=== PATIENT | male | born 1945 | race Caucasian/White ===

== ENCOUNTER 2017-10-14 10:31 | Day surgery (SDC) | payer MEDICARE, BC ==
--- NOTE | 2017-10-13 21:41 | Pre-Procedure Note/Attestation ---
Pre-Procedure Note/Attestation Complete Prior to Procedure Planned Procedure: right - removal of cataract and placement of intraocular lens, right eye Procedure Narrative: Removal of cataract and placement of intraocular lens, right eye Indications for Procedure Pre-Operative Diagnosis: Cataract, right eye Attestation I attest that I discussed the nature of the procedure; its benefits; risks and complications; and alternatives (and the risks and benefits of such alternatives ), prior to the procedure, with the patient (or the patient's legal novelties sales representative). I attest that, if there was a reasonable possibility of needing a blood transfusion, the patient (or the patient's legal novelties sales representative) was given the [place] Department of Health Services standardized written summary, pursuant to the [place] Blood Safety Act ([place] Health and Safety Code # 1645, as amended). I attest that I re-evaluated the patient just prior to the surgery and that there has been no change in the patient's H&P, except as documented below: Ramiro Oliva MD Oct 13, 2017 21:41
[~2017-10-14] VITALS: Ht 167.6 cm; Wt 90.7 kg
[2017-10-14] VITALS (9 sets, daily range): BP systolic 146–169; BP diastolic 78–99
[~2017-10-14 10:31] MED LIST: ASPIR 8181 MG ORAL; Acetylcholine Injection (OR) ONE; Akten 3.5% 1ml Btl ONE; BSS 15ml BTL ONE; BSS 500ml btl ONE; Carbachol 0.01% Op Soln 1.5ml vial ONE; Cyclopentolate 1% Opth Sol 2ml ONE; Dexamethasone 4mg/ml vial ONE; EPINEPHrine 1mg/1ml Amp ONE; Fluorescein Strips ONE; Lidocaine 1% MPF 10mg/ml 5ml ONE; Maxitrol Opth Oint 3.5gm ONE; Phenylephrine 10% Opth Soln 5ml ONE; Povidone-Iodine 5% opth solution ONE; Pred Forte 1% Opth Susp 1ml ONE; Pred Forte 1% Opth Susp 1ml RIGHT EYE ONE; Pred Forte 1% Opth Susp 1ml RIGHT EYE SCH; SIMVASTATIN40 MG ORAL; Sodium Hyaluronate 10 mg/ml 0.85ml ONE; Tetracaine 0.5% Opth 4ml Soln ONE; Timolol 0.5% Op Soln 2.5ml ONE; Tropicamide 1% Opth 15ml Soln ONE; Vigamox Opth Soln 3ml ONE
[2017-10-14] MEDS ORDERED: Midazolam 2mg/2ml Inj ONE (10:53)
[2017-10-14] MEDS: Akten 3.5% 1ml Btl RIGHT EYE SCH ×3 (11:04→11:20)
[2017-10-14] MEDS: Vigamox Opth Soln 3ml RIGHT EYE SCH ×3 (11:05→11:21)
[2017-10-14] MEDS: Cyclopentolate 1% Opth Sol 2ml RIGHT EYE SCH ×3 (11:05→11:20)
[2017-10-14] MEDS: Phenylephrine 10% Opth Soln 5ml RIGHT EYE SCH ×3 (11:05→11:20)
[2017-10-14] MEDS: Tropicamide 1% Opth 15ml Soln RIGHT EYE SCH ×3 (11:05→11:20)
[2017-10-14] MEDS ORDERED: LR 1000ml ONE (11:30)
[2017-10-14] MEDS ORDERED: NS Irrig 1000ml ONE (11:30)
[2017-10-14] MEDS ORDERED: Sterile Water Irrig 1000ml IRRIG ONE (11:30)
[2017-10-14] MEDS ORDERED: fentaNYL 100 mcg/2 mL IV ONE (11:33)
[2017-10-14] MEDS ORDERED: LR 1000ml 1,000 ML IVLG SCH (12:08)
--- NOTE | 2017-10-14 12:08 | Anethesia Preoperative Eval ---
Anesthesia Pre-op PMH/ROS General Date of Evaluation: Oct 14, 2017 Time of Evaluation: 11:40 Anesthesiologist: Vamsi ASA Score: ASA 2 Mallampati Score Class I : Soft palate, uvula, fauces, pillars visible Class II: Soft palate, uvula, fauces visible Class III: Soft palate, base of uvula visible Class IV: Only hard plate visible Mallampati Classification: Class II Surgeon: Pj Diagnosis: R eye cataract Surgical Procedure: R eye cataract extraction Anesthesia History: none Family History: no anesthesia problems Allergies: Coded Allergies: No Known Allergies (Unverified , 10/12/17) Medications: see eMAR Past Medical History Cardiovascular: Reports: HTN - Borderline, not on meds Pulmonary: Denies: asthma, COPD, VENKAT, other Gastrointestinal/Genitourinary: Reports: GERD; Denies: CRI, ESRD, other Neurologic/Psychiatric: Denies: dementia, CVA, depression/anxiety, TIA, other Endocrine: Denies: DM, hypothyroidism, steroids, other HEENT: Reports: cataract (L), cataract (R); Denies: glaucoma, ELY SHOSHONE (L), ELY SHOSHONE (R), other Hematology/Immune: Denies: anemia, DVT, bleeding disorder, other Musculoskeletal/Integumentary: Denies: OA, RA, DJD, DDD, edema, other Other: other - overweight PMH Narrative: as above PSxH Narrative: Strabismus Sx as a kid, colonoscopy Anesthesia Pre-op Phys. Exam Physician Exam Last Vital Signs Date Time Temp Pulse Resp B/P (MAP) Pulse Ox O2 Delivery O2 Flow Rate FiO2 10/14/17 11:08 97.7 57 20 146/88 (107) 96 97.7 10/14/17 10:59 Room Air Constitutional: NAD Neurologic: CN 2-12 intact Cardiovascular: RRR, no M/R/G Respiratory: CTA Gastrointestinal: S/NT/ND Airway Exam Mallampati Score: Class II MO: full Neck: short Teeth: missing Dentures: no upper, no lower Anesthesia Pre-op A/P Labs see chart Studies Pre-op Studies: EKG - SR Risk Assessment & Plan Assessment: ASA 2 Plan: MAC Status Change Before Surgery: No Pre-Antibiotics Drug: none Nagi Agustin MD Oct 14, 2017 12:08
[2017-10-14] MEDS ORDERED: fentaNYL 100 mcg/2 mL IV PRN (12:15)
[2017-10-14] MEDS ORDERED: BSS 500ml btl ONE (12:28)
[2017-10-14] MEDS ORDERED: Sodium Hyaluronate 10 mg/ml 0.85ml ONE ×2 (12:40→13:04)
[2017-10-14] MEDS ORDERED: EPINEPHrine 1mg/1ml Amp ONE (13:04)
--- NOTE | 2017-10-14 13:05 | Immediate Post-Op Evaluation ---
Immediate Post-Op Evalulation Immediate Post-Op Evalulation Procedure: R eye cataract extraction with IOL Date of Evaluation: Oct 14, 2017 Time of Evaluation: 13:04 IV Fluids: 500 Blood Products: none Estimated Blood Loss: none Urinary Output: nonbe Blood Pressure Systolic: 170 Blood Pressure Diastolic: 89 Pulse Rate: 48 Respiratory Rate: 20 O2 Sat by Pulse Oximetry: 98 Temperature (Fahrenheit): 97.3 Pain Score (1-10): 1 Nausea: No Vomiting: No Complications none Patient Status: awake, patent, none Hydration Status: adequate Nagi Agustin MD Oct 14, 2017 13:05
--- NOTE | 2017-10-14 13:09 | Discharge Instructions ---
Discharge Instructions Discharge Instructions Follow Up Orders Wear eye shield at all times except to take eye drops Continue preop eye drops Followup in Dr Oliva's office tomorrow at 2:00 PM For Congestive Heart Failure Reminder Report to your physician any weight gain of 5 pounds or more in one week. Ramiro Oliva MD Oct 14, 2017 13:09
--- NOTE | 2017-10-14 13:11 | Brief Operative Note ---
Immediate Post Operative Note Operative Note Pre-op Diagnosis: Cataract, right eye Procedure: Phaco PC IOL, OD Post-op Diagnosis: same as pre-op plus - +3 NS +2 CS Surgeon: Yumiko Oliva MD MS Shampoo Assistant: none Anesthesiologist: Dr Agustin Anesthesia: local, MAC Specimen: none Complications: none Fluids: see chart Implant(s) used?: Yes - marisabel [id number] 14.5 Ramiro Oliva MD Oct 14, 2017 13:11
--- NOTE | 2017-10-14 13:45 | 48 Hour Post Anesthesia Eval ---
Post Anesthesia Evaluation Procedure: R eye cataract extraction with IOL Date of Evaluation: Oct 14, 2017 Time of Evaluation: 13:43 Blood Pressure Systolic: 158 0: 87 Pulse Rate: 49 Respiratory Rate: 20 Temperature (Fahrenheit): 97.6 O2 Sat by Pulse Oximetry: 98 Airway: patent Nausea: No Vomiting: No Pain Intensity: 2 Hydration Status: adequate Cardiopulmonary Status: stable Mental Status/LOC: patient returned to baseline Follow-up Care/Observations: n/a Post-Anesthesia Complications: none Follow-up care needed: ready to discharge Nagi Agustin MD Oct 14, 2017 13:45
--- NOTE | 2017-10-14 19:00 | Operative Note - Dictated ---
DATE OF OPERATION: 10/14/2017 SURGEON: Ramiro Oliva M.D. SERVICE UNIT OPERATOR OIL WELL SURGEON: None. ANESTHESIOLOGIST: Nagi Agustin M.D. ANESTHESIA: Local/standby/monitored anesthesia care. PREOPERATIVE DIAGNOSIS: Cataract, combined, right eye. POSTOPERATIVE DIAGNOSIS: Cataract, combined, right eye. PROCEDURE: 1. Phacoemulsification of cataract, right eye. 2. Placement of posterior chamber intraocular lens, right eye (model ZCB00, power 14.5). SPECIMENS: None. COMPLICATIONS: None. INDICATIONS FOR SURGERY: The patient has had the painless progressive decrease in visual acuity in the right eye secondary to cataract. The patient understands the risks of surgery including infection, bleeding, need for further surgery, loss of vision, no improvement in vision, loss of the eye, loss of life, glaucoma, retinal detachment. He understands these risks and elects to proceed with surgery. FINDINGS: The patient had a +3 nuclear sclerotic cataracts as well as +1 cortical cataract. NOTE: The case took longer than usual because, # 1, the phaco machine failed while trying to remove the quadrants of the nucleus and had to be restarted and rebooted. Also, the lens could not be rolled correctly and it took several times to get the right folding so that both haptics were tucked into the fold of the optic. OPERATIVE NOTE: After informed consent was obtained, the patient was brought into the operative room, placed in supine position. Cardiac and respiratory monitors were attached. A time-out was performed and all criteria were met and everyone in the room agreed. The right eye was then draped and prepped in sterile manner for ocular surgery. A lid speculum was placed in the eye. A 1% lidocaine preservative-free was injected at the approximate 8 o'clock limbus. A conjunctiva peritomy from approximately 7:30 to 8:30 was made and dissected posteriorly. Hemostasis was maintained with bipolar cautery. A 2.6 mm limbal incision was made, centered approximately 8 o'clock, and dissected anteriorly. A paracentesis was made at approximately 10:30 and Shugarcaine was injected into the anterior chamber followed by Healon. The anterior chamber was then entered using a 2.6 mm keratome through the limbal incision. An anterior capsulorrhexis was then performed. Hydrodissection and hydrodelineation of the lens was then performed. The lens was then phacoemulsified. After trying to remove the first quadrant and then the second quadrant, the vacuum was not working and neither of the quadrants were able to be removed. At this point, the phaco unit was turned completely off and restarted. Healon was placed into the anterior chamber and capsular bag during this time. Once the phaco unit was working, then the 2 quadrants of nucleus were able to be removed as usual followed by the remaining 2 quadrants. The cortex was aspirated using I/A tip. Healon was injected into the anterior chamber and capsular bag. The lens was taken from its package and placed into the cartridge and upon inspecting prior to injecting the lens, the leading haptic was completely out of the fold and extended. The lens was then removed from the cartridge and injected multiple times to get the fold correctly where both haptics were in the fold of the optic. Once these were correctly in the cartridge, the tip of the cartridge was placed through the limbal incision. The lens was injected into the capsular bag and centered nicely with a Sinskey hook. Healon was aspirated from the anterior chamber capsular bag. One 10-0 nylon interrupted suture was then placed. The knot was rotated and buried. Care was taken during the entire procedure not to touch the endothelium. The IOL was inspected and the haptics were noted to be aligned into the 3 to 9 o'clock meridian, and both haptics were in the capsular bag as well as the optic. The wounds were checked and found to be watertight. The knot had been previously buried. All wounds were checked and found to be watertight. The conjunctiva was then closed with forceps cautery. The lid speculum and drapes were removed from the eye. Drops of moxifloxacin and Pred Forte were applied to the eye followed by Maxitrol ointment and then a shield. The patient tolerated the procedure well and left the operating room in awake, alert in stable condition. Ramiro Oliva M.D. DR: FLOYD JOB#: [id number] CC:
== END 2017-10-14 14:15 | disposition home or self-care (01) ==
LOC: SUR 10:31
DX: H25.811 Combined forms of age-related cataract, right eye (principal); I10 Essential (primary) hypertension; K21.9 Gastro-esophageal reflux disease without esophagitis; E66.3 Overweight; E78.5 Hyperlipidemia, unspecified
CPT/HCPCS: 66984; J0171; J1100; J2250; J3010; J7120; V2632; 94003; 94150

== ENCOUNTER 2017-11-04 09:46 | Day surgery (SDC) | payer MEDICARE, BC ==
--- NOTE | 2017-11-03 21:51 | Pre-Procedure Note/Attestation ---
Pre-Procedure Note/Attestation Complete Prior to Procedure Planned Procedure: left - removal of cataract and placement of intraocular lens , left eye Procedure Narrative: Removal of cataract and placement of intraocular lens, left eye Indications for Procedure Pre-Operative Diagnosis: Cataract, combined, left eye Attestation I attest that I discussed the nature of the procedure; its benefits; risks and complications; and alternatives (and the risks and benefits of such alternatives ), prior to the procedure, with the patient (or the patient's legal screening representative). I attest that, if there was a reasonable possibility of needing a blood transfusion, the patient (or the patient's legal screening representative) was given the [place] Department of Health Services standardized written summary, pursuant to the [place] Blood Safety Act ([place] Health and Safety Code # 1645, as amended). I attest that I re-evaluated the patient just prior to the surgery and that there has been no change in the patient's H&P, except as documented below: Ramiro Oliva MD Nov 03, 2017 21:51
[~2017-11-04] VITALS: Ht 167.6 cm; Wt 90.7 kg
[2017-11-04] VITALS (7 sets, daily range): BP systolic 139–172; BP diastolic 80–100
[~2017-11-04 09:46] MED LIST changes: -Acetylcholine Injection (OR) ONE; -Akten 3.5% 1ml Btl ONE; -BSS 15ml BTL ONE; -BSS 500ml btl ONE; -Carbachol 0.01% Op Soln 1.5ml vial ONE; -Cyclopentolate 1% Opth Sol 2ml ONE; -Dexamethasone 4mg/ml vial ONE; -EPINEPHrine 1mg/1ml Amp ONE; -Fluorescein Strips ONE; -Lidocaine 1% MPF 10mg/ml 5ml ONE; -Maxitrol Opth Oint 3.5gm ONE; -Phenylephrine 10% Opth Soln 5ml ONE; -Povidone-Iodine 5% opth solution ONE; +Pred Forte 1% Opth Susp 1ml LEFT EYE ONE; -Pred Forte 1% Opth Susp 1ml ONE; -Pred Forte 1% Opth Susp 1ml RIGHT EYE ONE; -Pred Forte 1% Opth Susp 1ml RIGHT EYE SCH; -Sodium Hyaluronate 10 mg/ml 0.85ml ONE; -Tetracaine 0.5% Opth 4ml Soln ONE; -Timolol 0.5% Op Soln 2.5ml ONE; -Tropicamide 1% Opth 15ml Soln ONE; -Vigamox Opth Soln 3ml ONE
[2017-11-04] MEDS ORDERED: Cyclopentolate 1% Opth Sol 2ml ONE (10:05)
[2017-11-04] MEDS ORDERED: Akten 3.5% 1ml Btl ONE (10:05)
[2017-11-04] MEDS ORDERED: Pred Forte 1% Opth Susp 1ml ONE ×2 (10:05→10:36)
[2017-11-04] MEDS ORDERED: Tropicamide 1% Opth 15ml Soln ONE (10:05)
[2017-11-04] MEDS ORDERED: Vigamox Opth Soln 3ml ONE (10:05)
[2017-11-04] MEDS ORDERED: Phenylephrine 10% Opth Soln 5ml ONE (10:05)
[2017-11-04] MEDS: Akten 3.5% 1ml Btl LEFT EYE SCH ×3 (10:16→10:31)
[2017-11-04] MEDS: Phenylephrine 10% Opth Soln 5ml LEFT EYE SCH ×3 (10:16→10:31)
[2017-11-04] MEDS: Cyclopentolate 1% Opth Sol 2ml LEFT EYE SCH ×3 (10:16→10:31)
[2017-11-04] MEDS: Tropicamide 1% Opth 15ml Soln LEFT EYE SCH ×3 (10:17→10:31)
[2017-11-04] MEDS: Vigamox Opth Soln 3ml LEFT EYE SCH ×3 (10:17→10:31)
[2017-11-04] MEDS ORDERED: Lidocaine 1% MPF 10mg/ml 5ml ONE ×2 (10:21→12:29)
[2017-11-04] MEDS ORDERED: Lidocaine 2% MPF 5ml Vial INJ ONE (10:21)
[2017-11-04] MEDS ORDERED: EPINEPHrine 1mg/1ml Amp ONE (10:21)
[2017-11-04] MEDS ORDERED: BSS 15ml BTL ONE (10:22)
[2017-11-04] MEDS ORDERED: Dexamethasone 4mg/ml vial ONE (10:22)
[2017-11-04] MEDS ORDERED: BSS 500ml btl ONE (10:22)
[2017-11-04] MEDS ORDERED: Tetracaine 0.5% Opth 4ml Soln ONE (10:22)
[2017-11-04] MEDS ORDERED: Bupivacaine 0.75% 30ml vial INJ ONE (10:22)
[2017-11-04] MEDS ORDERED: Povidone-Iodine 5% opth solution ONE (10:22)
[2017-11-04] MEDS ORDERED: Timolol 0.5% Op Soln 2.5ml ONE (10:36)
[2017-11-04] MEDS ORDERED: Maxitrol Opth Oint 3.5gm ONE (10:36)
[2017-11-04] MEDS ORDERED: Ciprofloxacin Opth Soln 2.5ml ONE (10:36)
[2017-11-04] MEDS ORDERED: Acetylcholine Injection (OR) ONE (10:37)
[2017-11-04] MEDS ORDERED: Sodium Hyaluronate 10 mg/ml 0.85ml ONE ×2 (10:37→13:45)
--- NOTE | 2017-11-04 12:21 | Anethesia Preoperative Eval ---
Anesthesia Pre-op PMH/ROS General Date of Evaluation: Nov 04, 2017 Time of Evaluation: 12:56 Anesthesiologist: Arik ASA Score: ASA 3 Mallampati Score Class I : Soft palate, uvula, fauces, pillars visible Class II: Soft palate, uvula, fauces visible Class III: Soft palate, base of uvula visible Class IV: Only hard plate visible Mallampati Classification: Class II Surgeon: Pj Diagnosis: Cataract Extraction OS Surgical Procedure: Cat Ext IOL OS Anesthesia History: none Family History: no anesthesia problems Allergies: Coded Allergies: No Known Allergies (Unverified , 11/04/17) Medications: see eMAR Past Medical History Cardiovascular: Reports: HTN, other - HL Gastrointestinal/Genitourinary: Reports: GERD Other: obesity - BMI 35 PSxH Narrative: Colon Sx as kid Anesthesia Pre-op Phys. Exam Physician Exam Last Vital Signs Date Time Temp Pulse Resp B/P (MAP) Pulse Ox O2 Delivery O2 Flow Rate FiO2 11/04/17 10:23 Room Air 11/04/17 10:20 97.9 52 18 148/85 (106) 98 97.9 Constitutional: NAD Neurologic: CN 2-12 intact Cardiovascular: RRR Respiratory: CTA Gastrointestinal: S/NT/ND Airway Exam Mallampati Score: Class II MO: limited ROM: limited Teeth: missing, intact Anesthesia Pre-op A/P Risk Assessment & Plan Assessment: ASA 3 Plan: GA Status Change Before Surgery: No Mike Huston MD Nov 04, 2017 12:21
--- NOTE | 2017-11-04 12:22 | Immediate Post-Op Evaluation ---
Immediate Post-Op Evalulation Immediate Post-Op Evalulation Procedure: Cat Ext IOL OS Date of Evaluation: Nov 04, 2017 Time of Evaluation: 14:20 IV Fluids: 600 LR Blood Products: 0 Estimated Blood Loss: 1 Urinary Output: 0 Blood Pressure Systolic: 172 Blood Pressure Diastolic: 100 Pulse Rate: 52 Respiratory Rate: 16 O2 Sat by Pulse Oximetry: 99 Temperature (Fahrenheit): 97.4 Pain Score (1-10): 1 Nausea: No Vomiting: No Complications 0 Patient Status: awake, reacts, patent, none Hydration Status: adequate Mike Huston MD Nov 04, 2017 12:22
--- NOTE | 2017-11-04 12:22 | 48 Hour Post Anesthesia Eval ---
Post Anesthesia Evaluation Procedure: Cat Ext IOL OS Date of Evaluation: Nov 04, 2017 Time of Evaluation: 16:34 Blood Pressure Systolic: 176 0: 102 Pulse Rate: 54 Respiratory Rate: 18 Temperature (Fahrenheit): 98.2 O2 Sat by Pulse Oximetry: 99 Airway: patent Nausea: No Vomiting: No Pain Intensity: 1 Hydration Status: adequate Cardiopulmonary Status: Stable Mental Status/LOC: patient returned to baseline Follow-up Care/Observations: 0 Post-Anesthesia Complications: 0 Follow-up care needed: ready to discharge Mike Huston MD Nov 04, 2017 12:22
[2017-11-04] MEDS ORDERED: Midazolam 2mg/2ml Inj ONE (12:26)
[2017-11-04] MEDS ORDERED: Alfentanil 2ml Inj ONE (12:27)
[2017-11-04] MEDS ORDERED: Propofol 200mg/20ml IV ONE (12:29)
[2017-11-04] MEDS ORDERED: Sodium Chloride 10ml vial INJ ONE (12:36)
[2017-11-04] MEDS ORDERED: NS Irrig 1000ml ONE (13:00)
[2017-11-04] MEDS ORDERED: LR 1000ml ONE (13:00)
[2017-11-04] MEDS ORDERED: Sterile Water Irrig 1000ml IRRIG ONE (13:00)
--- NOTE | 2017-11-04 14:03 | Discharge Instructions ---
Discharge Instructions Discharge Instructions Follow Up Orders Continue pre op eye drops Leave shield on at all times except to place eye drops Followup tomorrow in Dr Oliva's office For Congestive Heart Failure Reminder Report to your physician any weight gain of 5 pounds or more in one week. Ramiro Oliva MD Nov 04, 2017 14:03
--- NOTE | 2017-11-04 14:05 | Brief Operative Note ---
Immediate Post Operative Note Operative Note Pre-op Diagnosis: Cataract, combined, left eye Procedure: Phaco PC IOL, OS Post-op Diagnosis: same as pre-op Surgeon: Yumiko Oliva MD Reconstructive Surgeon: none Anesthesiologist: Dr Masterson Anesthesia: local, MAC Specimen: none Complications: none Fluids: see chart Implant(s) used?: Yes - teclillian [email or web address] 15.0 Ramiro Oliva MD Nov 04, 2017 14:05
[2017-11-04] MEDS ORDERED: LR 1000ml 1,000 ML IVLG SCH (14:26)
[2017-11-04] MEDS ORDERED: Metoclopramide 10mg/2ml Inj IVP PRN (14:30)
[2017-11-04] MEDS ORDERED: Hydromorphone 0.5mg/0.5ml inj IVP PRN (14:30)
[2017-11-04] MEDS ORDERED: DiphenhydrAMINE 50mg/ml Inj IVP PRN (14:30)
[2017-11-04] MEDS ORDERED: Norco 5mg/325mg tab ORAL PRN (14:30)
[2017-11-04] MEDS ORDERED: LORazepam Inj 2mg/ml 1ml IV PRN (14:30)
[2017-11-04] MEDS ORDERED: oxyCODONE HCL/Acetaminophen 5/325mg ORAL PRN (14:30)
[2017-11-04] MEDS ORDERED: Atropine Inj 1mg/10ml Syr IV PRN (14:30)
[2017-11-04] MEDS ORDERED: Midazolam 2mg/2ml Inj IVP PRN (14:30)
[2017-11-04] MEDS ORDERED: fentaNYL 100 mcg/2 mL IV PRN (14:30)
[2017-11-04] MEDS ORDERED: Labetalol 5mg/ml 20ml vial IV PRN (14:30)
[2017-11-04] MEDS ORDERED: Ketorolac 30mg Inj IV PRN ×2 (14:30)
[2017-11-04] MEDS ORDERED: HYDROcodone/Acetamin 7.5/325 tab ORAL PRN (14:30)
--- NOTE | 2017-11-04 18:15 | Operative Note - Dictated ---
DATE OF OPERATION: 11/04/2017 SURGEON: Ramiro Oliva M.D. ASSISTANCE SURGEON: None. ANESTHESIA: Mike Huston M.D. ANESTHESIA: Local/standby/monitored anesthesia care. PREOPERATIVE DIAGNOSIS: Cataract, combined, left eye. POSTOPERATIVE DIAGNOSIS: Cataract, combined, left eye. PROCEDURES: 1. Phacoemulsification of cataract, left eye. 2. Placement of posterior chamber intraocular lens, left eye, model Razo ZCB00 power of 15.0. SPECIMENS: None. COMPLICATIONS: None. INDICATIONS FOR SURGERY: The patient has had the painless progressive decrease in visual acuity in the left eye secondary to cataract. The patient understands the risks of surgery including infection, bleeding, need for further surgery, loss of vision, no improvement in vision, loss of the eye, loss of life, glaucoma, retinal detachment, understands these risks and elects to proceed with surgery. FINDINGS: The patient had a +3 nuclear sclerotic cataract and a +1 cortical cataract. OPERATIVE NOTE: After informed consent was obtained, the patient was brought in to the operating room and placed in the supine position. Cardiac and respiratory monitors were attached. A time-out was performed and all criteria were met and everyone in the room agreed. The left eye was then draped and prepped in sterile manner for ocular surgery. A lid speculum was placed in the eye. A 1% lidocaine preservative-free was injected at the approximate 2 o'clock limbus. A conjunctiva peritomy from approximately 1:30 to 2:30 was made and dissected posteriorly. Hemostasis was maintained with bipolar cautery. A 2.8 mm limbal incision was made centered at approximately 2 o'clock and dissected anteriorly. A paracentesis was made at approximately 5 o'clock and Shugarcaine was injected into the anterior chamber followed by Healon. The anterior chamber was then entered using a 2.8 mm keratome through the limbal incision. An anterior capsulorrhexis was then performed. Hydrodissection and hydrodelineation of the lens was then performed. The lens was then phacoemulsified using divide and conquer four-quadrant technique. Residual cortical material was then aspirated. Healon was injected into the anterior chamber and capsular bag. The lens was taken from its package, placed into the cartridge, and had to be changed several times when the haptics was out of the fold. Once the haptic was in good position and folded, the tip of the cartridge was placed through the limbal incision and the lens was injected into the capsular bag and centered nicely with a Sinskey hook. Healon was aspirated from the anterior chamber and capsular bag. A one 10-0 nylon interrupted suture was then placed through the limbal incision and the knot was rotated and buried. Care was taken during the entire procedure not to touch the endothelium. The wounds were checked and found to be watertight. The conjunctiva was closed with forceps cautery. The lid speculum and drapes were removed from the eye and drops of moxifloxacin and Pred Forte were applied to the eye followed by Maxitrol ointment and a shield. The patient tolerated the procedure well and left the operating room awake, alert, and in stable condition. Ramiro Oliva M.D. DR: REESE JOB#: [id number] CC:
== END 2017-11-04 15:05 | disposition home or self-care (01) ==
LOC: SUR 09:46
DX: H25.812 Combined forms of age-related cataract, left eye (principal); K21.9 Gastro-esophageal reflux disease without esophagitis; E78.5 Hyperlipidemia, unspecified; N40.1 Benign prostatic hyperplasia with lower urinary tract symptoms; R39.12 Poor urinary stream; E66.9 Obesity, unspecified; Z68.35 Body mass index [BMI] 35.0-35.9, adult; Z79.82 Long term (current) use of aspirin
CPT/HCPCS: 66984; J0171; J1100; J2250; J2704; J3490; J7120; V2632; 94003; 94150